=== PATIENT | male | born 1955 | race Caucasian/White ===

== ENCOUNTER 2022-07-31 17:14 | Emergency (ER) | payer MEDICARE, MEDICAID, SELFPAY ==
[2022-07-31 17:17] VITALS: BP 132/82; PULSE 92; RESP 18; TEMP 36.7; O2SAT 99
--- NOTE | 2022-07-31 18:55 | ED.WOUNDLAC ---
HPI - Wound/Laceration General Chief Complaint: Wound/Laceration Stated Complaint: wound to right shoulder Time Seen by Provider: 07/31/22 18:33 History of Present Illness HPI narrative: Patient is a 67-year-old male here for evaluation of a lesion to his right shoulder that developed about 2 weeks ago. Patient thought it was an ingrown hair at first, has been picking at the area and it has only grown in size. The area has not opened up to drain spontaneously. Presents today due to worsening redness and swelling. He saw his primary care doctor who referred him to a summer counselor but has not been on antibiotics yet. He denies any systemic symptoms Related Data Allergies Allergy/AdvReac Type Severity Reaction Status Date / Time Penicillins Allergy Unknown Unknown Verified 07/31/22 18:24 Review of Systems Review of Systems: Gen.: Denies fevers or chills Eyes: Denies eye pain or visual change ENT: Denies congestion Respiratory: Denies shortness of breath or cough CV: Denies chest pain or palpitations GI: Denies abdominal pain nausea, emesis or diarrhea denies burning, urgency, frequency or hematuria Musculoskeletal: Denies back pain or muscle pain Neuro: Denies numbness, tingling, weakness or focal weakness Skin: Reports lesion to right shoulder Except as documented, all other systems reviewed and negative PMFSH Social History Social History Smoking status: Current every day smoker Exam Narrative: APPEARANCE: Well appearing, no pain in distress, well-nourished. Head: Normocephalic and atraumatic. EYES: PERRLA/EOMI, conjunctivae clear NOSE: No nasal drainage EARS: External ear normal in appearance THROAT: Oropharynx is clear. Mucous membranes are moist. NECK: Supple. No adenopathy, no masses. RESPIRATORY: Airway patent, respirations nonlabored. Clear to auscultation bilaterally, no rales, rhonchi, wheezing. CARDIOVASCULAR: Regular rate and rhythm without murmurs, rubs, or gallops. ABDOMINAL: Normoactive bowel sounds. Soft, nontender, nondistended. No rebound tenderness or guarding. MUSCULOSKELETAL: Extremities are warm and well-perfused. Moves all extremities well. No edema. NEURO: Normal speech. No focal neurologic deficits. SKIN: Patient has a 2 x 2 centimeter area of induration to his right posterior shoulder with a central pus pocket. Slight overlying cellulitis. PSYCHIATRIC: Normal affect/mood.. Course Vital Signs Vital signs: Vital Signs Temperature 98.1 F 07/31/22 17:17 Pulse Rate 92 07/31/22 17:17 Respiratory Rate 18 07/31/22 17:17 Blood Pressure 132/82 07/31/22 17:17 Pulse Oximetry 99 07/31/22 17:17 Temperature 98.1 F 07/31/22 17:17 Pulse Rate 92 07/31/22 17:17 Respiratory Rate 18 07/31/22 17:17 Blood Pressure 132/82 07/31/22 17:17 Pulse Oximetry 99 07/31/22 17:17 Procedures Abscess I/D back: Date of Incision: 07/31/22 Time of Incision: 18:58 Side (if applicable): right Local Anesthetic: lidocaine 2% and with epi Amount of anesthesia used (mL): 1 Technique: incised with #15 blade and probed loculations Amount of fluid expressed (mL): 5 Irrigation: No Packing used?: none I&D Results: Pus MDM - Wound/Laceration MDM Narrative Medical decision making narrative: 67-year-old male here for evaluation of what appears to be an abscess to his right shoulder blade that is developed slowly over the past 2 weeks the abscesses incised and drained in the ED with return of purulent material was collected for culture. Patient tolerated the procedure well, feels much better afterwards. He will be discharged home with antibiotics and PMD follow-up. We discussed return precautions and he voiced understanding. Discharge Plan Discharge Clinical Impression: Abscess Patient Disposition: Home, Self-Care Condition: Stable Instructions: Antibiotic Form, Abscess (ED) Additional Instructions: You had
--- NOTE | 2022-07-31 19:25 | PC.NURSE ---
Patient report recieved from AZUCENA Hyde. All questions answered and care of patient assumed.
== END 2022-07-31 19:39 | disposition home or self-care (01) ==
LOC: ANHED 19:03
PROVIDERS: Emergency Provider Physician Assistant; PCP Internal Medicine Gastroenterology
DX: L02.413 Cutaneous abscess of right upper limb (principal); F17.200 Nicotine dependence, unspecified, uncomplicated
CPT/HCPCS: 10060; 87070; 87205; 99283